=== PATIENT | female | born 1945 | race American Indian/Alaskan Native ===

== ENCOUNTER 2018-11-01 07:29 | Outpatient (CLI) | payer MEDICARE, BC | END 2018-11-01 07:30 | disposition home or self-care (01) | LOC: C.MAMMO 07:29 | DX: Z12.31 Encounter for screening mammogram for malignant neoplasm of breast (principal) ==

== ENCOUNTER 2018-11-11 08:31 | Outpatient (CLI) | payer MEDICARE, BC | END 2018-11-11 08:32 | disposition home or self-care (01) | LOC: C.MAMMO 08:32 | DX: R92.8 Other abnormal and inconclusive findings on diagnostic imaging of breast (principal) ==